=== PATIENT | female | born 1975 | race Caucasian/White ===

== ENCOUNTER 2016-12-08 21:16 | Emergency (ER) | payer OTHER ==
[2016-12-08 21:44] VITALS: BMI 29.0
[2016-12-08] MEDS ORDERED: SODIUM CHLORIDE 0.9% 500 ML INFUS.BAG IV ONE (22:45)
--- NOTE | 2016-12-08 23:00 | PDOC ---
History of Present Illness - General History Source: Patient Exam Limitations: No Limitations - History of Present Illness Initial Comments: 12/09/16 00:14 The patient is a 41 year old female, 8 weeks , with past medical history of diabetes and hypertension who presents to the ED with complaints of elevated blood sugar levels that began today. She reports that she left her Janumet at work and did not take it today. She wont have access to it until Saturday. She complains of blurred vision, dizziness, urinary frequency, and increased thirst. She reports taking a finger stick at home which was in the 500 s. She denies any recent illness, fever, chills, nausea, vomiting, diarrhea, cough, shortness of breath, or chest pain. <Miesha Sanchez - Last Filed: 12/09/16 00:13> <Cuco Lezama - Last Filed: 12/09/16 01:34> - General Chief Complaint: Blood Sugar Problem Stated Complaint: HIGH BLOOD SUGAR Past History <Miesha Sanchez - Last Filed: 12/09/16 00:13> - Past Medical History Diabetes: Yes HTN: Yes - Psycho/Social/Smoking Cessation Hx Anxiety: No Suicidal Ideation: No Smoking History: Never smoked Hx Alcohol Use: No Drug/Substance Use Hx: No Substance Use Type: None <Cuco Lezama - Last Filed: 12/09/16 01:34> - Past Medical History Allergies/Adverse Reactions: Allergies Allergy/AdvReac Type Severity Reaction Status Date / Time No Known Allergies Allergy Verified 12/08/16 21:41 Home Medications: Ambulatory Orders Sitagliptin Phos/Metformin HCl [Janumet 50-500 mg Tablet] 500 mg PO DAILY #10 tab 12/09/16 Review of Systems - Review of Systems Able to Perform ROS?: Yes Comments:: 12/09/16 00:14 GENERAL/CONSTITUTIONAL: No fever or chills. No weakness. HEAD, EYES, EARS, NOSE AND THROAT: No change in vision. No ear pain or discharge. No sore throat. CARDIOVASCULAR: No chest pain or shortness of breath. RESPIRATORY: No cough, wheezing, or hemoptysis. GASTROINTESTINAL: No nausea, vomiting, diarrhea or constipation. GENITOURINARY: Present: frequency No dysuria or change in urination. MUSCULOSKELETAL: No joint or muscle swelling or pain. No neck or back pain. SKIN: No rash NEUROLOGIC: Present: dizziness, blurred vision No headache,loss of consciousness, or change in strength/sensation. ENDOCRINE: Present: increased thirst No abnormal weight change. HEMATOLOGIC/LYMPHATIC: No anemia, easy bleeding, or history of blood clots. ALLERGIC/IMMUNOLOGIC: No hives or skin allergy. All Other Systems: Reviewed and Negative <Miesha Sanchez - Last Filed: 12/09/16 00:13> *Physical Exam - Vital Signs Last Vital Signs Temp Pulse Resp BP Pulse Ox 98.5 F 89 18 141/94 99 12/08/16 21:37 12/08/16 21:37 12/08/16 21:37 12/08/16 21:37 12/08/16 21:37 - Physical Exam Comments: 12/09/16 00:16 GENERAL: Awake, alert, and fully oriented, in no acute distress HEAD: No signs of trauma EYES: PERRLA, EOMI, sclera anicteric, conjunctiva clear ENT:Dry mucous membranes. Auricles normal inspection, hearing grossly normal, nares patent, oropharynx clear without exudates. NECK: Normal ROM, supple, no lymphadenopathy, JVD, or masses LUNGS: Breath sounds equal, clear to auscultation bilaterally. No wheezes, and no crackles HEART: Regular rate and rhythm, normal S1 and S2, no murmurs, rubs or gallops ABDOMEN: Soft, nontender, normoactive bowel sounds. No guarding, no rebound. No masses EXTREMITIES: Normal range of motion, no edema. No clubbing or cyanosis. No cords , erythema, or tenderness NEUROLOGICAL: Cranial nerves II through XII grossly intact. Normal speech, normal gait SKIN: Warm, Dry, normal turgor, no rashes or lesions noted. <Miesha Sanchez - Last Filed: 12/09/16 00:13> - Vital Signs Last Vital Signs Temp Pulse Resp BP Pulse Ox 98.5 F 89 18 141/94 99 12/08/16 21:37 12/08/16 21:37 12/08/16 21:37 12/08/16 21:37 12/08/16 21:37 <Cuco Lezama - Last Filed: 12/09/16 01:34> ED Treatment Course - LABORATORY CBC & Chemistry Diagram: 12/08/16 23:15 12/08/16 23:15 - ADDITIONAL ORDERS Additional order review: Laboratory Results 12/08/16 12/08/16 12/08/16 23:20 23:15 23:15 INR Sodium Potassium Chloride Carbon Dioxide Anion Gap BUN Creatinine Creat Clearance w eGFR Random Glucose Lactic Acid 1.011 Calcium Phosphorus Magnesium Total Bilirubin AST ALT Alkaline Phosphatase Creatine Kinase Troponin I Total Protein Albumin Lipase Urine Color Straw Urine Appearance Clear Urine pH 5.0 Ur Specific [place] 1.042 H Urine Protein Negative Urine Glucose (UA) 3+ H Urine Ketones Trace H Urine Blood Negative Urine Nitrite Negative Urine Bilirubin Negative Urine Urobilinogen Negative Ur Leukocyte Esterase Negative Acetone, Qual Negative L 12/08/16 12/08/16 23:15 23:15 INR 1.02 Sodium 132 L Potassium 4.4 Chloride 94 L Carbon Dioxide 28 Anion Gap 10 BUN 12 D Creatinine 1.0 D Creat Clearance w eGFR > 60 Random Glucose 462 H* D Lactic Acid Calcium 8.8 Phosphorus 3.4 Magnesium 1.9 Total Bilirubin 0.4 D AST 14 L ALT 24 Alkaline Phosphatase 115 Creatine Kinase 145 Troponin I < 0.02 Total Protein 8.1 Albumin 3.8 Lipase 164 Urine Color Urine Appearance Urine pH Ur Specific [place] Urine Protein Urine Glucose (UA) Urine Ketones Urine Blood Urine Nitrite Urine Bilirubin Urine Urobilinogen Ur Leukocyte Esterase Acetone, Qual 12/08/16 23:15 RBC 5.05 MCV 78.2 L MCHC 32.6 RDW 13.6 MPV 9.1 Neutrophils % 51.8 Lymphocytes % 39.5 Monocytes % 6.8 Eosinophils % 1.3 Basophils % 0.6 - Medications Given in the ED: ED Medications Discontinued Medications Generic Name Dose Route Start Last Admin Trade Name Guillermina PRN Reason Stop Dose Admin Sodium Chloride 1,000 ml 12/08/16 22:45 12/08/16 23:21 Normal Saline - IV 12/08/16 22:46 1,000 ml ONCE ONE Administration <Miesha Sanchez - Last Filed: 12/09/16 00:13> - LABORATORY CBC & Chemistry Diagram: 12/08/16 23:15 12/08/16 23:15 <Cuco Lezama - Last Filed: 12/09/16 01:34> Medical Decision Making - Medical Decision Making 12/09/16 01:29 12/09/16 01:30 This is a 41yo f with hyperglycemia and medication noncompliance. She is given a Rx for her daily antihyperglycemic agent so she has ability to take it until she is able to knot picker cloth her bottle which she left at work; she has no complaints at this time and is given fluids; no DKA and no significant hypokalemia. She is encouraged to follow up with the PMD within the next 24 hours. <Cuco Lezama - Last Filed: 12/09/16 01:34> *DC/Admit/Observation/Transfer - Attestations Scribe Attestion: 12/09/16 00:16 Documentation prepared by Miesha Sanchez, acting as auditor medical claims for Cuco Lezama MD. <Miesha Sanchez - Last Filed: 12/09/16 00:13> - Discharge Dispostion Admit: No Decision to Admit order Date/Time: 12/09/16 01:26 I, Dr. Cuco Lezama MD, attest that this document has been prepared under my direction and personally reviewed by me in its entirety. I further attest, that it accurately reflects all work, treatment, procedures and medical decision -making performed by me. - Attestations Physician Attestion: 12/09/16 01:30 I, Dr. Cuco Lezama MD, attest that this document has been prepared under my direction and personally reviewed by me in its entirety. I further attest, that it accurately reflects all work, treatment, procedures and medical decision -making performed by me. <Cuco Lezama - Last Filed: 12/09/16 01:34> Diagnosis at time of Disposition: Noncompliance with medication regimen, Hyperglycemia - Discharge Dispostion Disposition: HOME Condition at time of disposition: Good - Prescriptions Prescriptions: Sitagliptin Phos/Metformin HCl [Janumet 50-500 mg Tablet] 500 mg PO DAILY #10 tab - Referrals Referrals: Whitney Lao [Primary Care Provider] - - Patient Instructions Additional Instructions: Please follow up with your PMD within the next 24 hours and if there is any change in your symptoms otherwise, please return immediately to the ED. If you do not take your medication, you will likely continue to have elevated blood sugar.
[2016-12-08 23:25] LABS: BASOPHIL 0.6 % (0-2.0); EOSINOPHIL 1.3 % (0-4.5); MCH 25.5 pg (25.7-33.7); MCHC 32.6 g/dl (32.0-36.0); MEAN CELL VOLUME 78.2 fl (80-96); MEAN PLT VOLUME 9.1 fl (7.5-11.1); NEUTROPHILS 51.8 % (42.8-82.8); PLATELET COUNT 299 K/MM3 (134-434); RDW 13.6 % (11.6-15.6)
[2016-12-08 23:35] LABS: INR 1.02 (0.82-1.09); PROTHROMBIN TIME (PATIENT) 11.2 SEC (9.98-11.88)
[2016-12-08 23:45] LABS: URINE APPEARANCE CLEAR; URINE BILIRUBIN NEGATIVE (NEGATIVE); URINE BLOOD NEGATIVE (NEGATIVE); URINE COLOR STRAW; URINE GLUCOSE (UA) 3+ (NEGATIVE); URINE KETONE TRACE (NEGATIVE); URINE LEUK ESTERASE NEGATIVE (NEGATIVE); URINE NITRITE NEGATIVE (NEGATIVE); URINE PROTEIN NEGATIVE (NEGATIVE); URINE UROBILINOGEN NEGATIVE E.U./dl (0.2-1.0)
[2016-12-08 23:51] LABS: ALBUMIN 3.8 g/dl (3.4-5.0); ANION GAP 10 (8-16); BILIRUBIN,TOTAL 0.4 mg/dL (0.2-1.0); CALCIUM 8.8 mg/dL (8.5-10.1); CO2 28 mmol/L (21-32); MAGNESIUM 1.9 mg/dL (1.8-2.4); PHOSPHOROUS 3.4 mg/dL (2.5-4.9); SGOT/AST 14 U/L (15-37); SGPT/ALT 24 U/L (12-78)
[2016-12-08 23:55] LABS: GLUCOSE,RANDOM 462 mg/dL (74-106)
[2016-12-08 23:57] LABS: ALK PHOS 115 U/L (45-117); TOT PROT 8.1 g/dl (6.4-8.2); TROPONIN I < 0.02 ng/ml (0.00-0.05)
[2016-12-09] MEDS ORDERED: SODIUM CHLORIDE 0.9% 500 ML INFUS.BAG IV ONE (01:03)
[2016-12-09] MEDS ORDERED: metFORMIN HCL 500 MG TABLET (FP) PO ONE (02:02)
[2016-12-09] MEDS ORDERED: metFORMIN HCL 500 MG TABLET (FP) ONE ×2 (02:13→02:15)
[2016-12-09 02:38] VITALS: BP 130/85; PULSE 84; TEMP 98.2
--- NOTE | 2016-12-09 22:28 | EKG ---
Test Reason : Blood Pressure : / mmHG Vent. Rate : 077 BPM Atrial Rate : 077 BPM P-R Int : 184 ms QRS Dur : 090 ms QT Int : 388 ms P-R-T Axes : 034 013 019 degrees QTc Int : 439 ms NORMAL SINUS RHYTHM NORMAL ECG NO PREVIOUS ECGS AVAILABLE Confirmed by MAGDA SOLIS MD ([id number]) on 12/09/2016 10:28:26 PM Referred By: Confirmed By:MAGDA SOLIS MD
== END 2016-12-09 02:38 | disposition home or self-care (01) ==
LOC: JER 21:16
DX: E11.65 Type 2 diabetes mellitus with hyperglycemia (principal); I10 Essential (primary) hypertension; Z79.84 Long term (current) use of oral hypoglycemic drugs; Z91.14 Patient's other noncompliance with medication regimen
CPT/HCPCS: 36415; 71010-TC; 80053; 81003; 82009; 82550; 83605; 83690; 83735; 84100; 84484; 85025; 85610; 87086; 93005; 93010; 99283-25

== ENCOUNTER 2017-09-07 16:42 | Emergency (ER) | payer OTHER ==
[2017-09-07 16:54] VITALS: BP 125/81; PULSE 90; TEMP 98; BMI 26.6
--- NOTE | 2017-09-07 17:34 | PDOC ---
History of Present Illness - General Chief Complaint: Blood Sugar Problem Stated Complaint: FATIGUE,BLOOD SUGAR PROBLEM Time Seen by Provider: 09/07/17 17:18 - History of Present Illness Initial Comments: 09/07/17 17:59 The patient is a 42 year old female with a history of HTN, DM who presents for evaluation of weakness and fatigue and dizziness. The patient reports a 2 month history of weakness and fatigue. She notes that her insulin regimen was increased 1 week ago by her primary care provider due to uncontrolled blood sugars. She notes that today, she was walking with her son and felt extremely fatigued and weak and dizzy prompting her to present to the ED due to concerns for her blood sugars. She denies fevers, chills, SOB, chest pain, abdominal pain, nausea, vomiting, or changes with urination or bowel movements. She does note that she has some mild lower back pain that responses to ibuprofen. Past History - Past Medical History Allergies/Adverse Reactions: Allergies Allergy/AdvReac Type Severity Reaction Status Date / Time No Known Allergies Allergy Verified 09/07/17 18:20 Home Medications: Ambulatory Orders Sitagliptin Phos/Metformin HCl [Janumet 50-500 mg Tablet] 500 mg PO DAILY #10 tab 12/09/16 Insulin Lispro Protamin/Lispro [Humalog Mix 75-25 Kwikpen] 20 unit SQ BID COPD: No Diabetes: Yes HTN: Yes - Suicide/Smoking/Psychosocial Hx Smoking History: Never smoked Information on smoking cessation initiated: No Hx Alcohol Use: No Drug/Substance Use Hx: No Substance Use Type: None Review of Systems - Review of Systems Comments:: 09/07/17 18:03 Constitutional: Fatigue. No fevers, chills, malaise HEENT: No Rhinorrhea, nasal congestion, visual changes Cardiovascular: Lightheadedness. No chest pain, syncope, palpitations, Respiratory: No Cough, SOB, Hemoptysis, Gastrointestinal: No Abdominal pain, Nausea, Vomiting, Constipation, Diarrhea, Melena Genitourinary: No Dysuria, Frequency, Urgency, Hesitancy, Hematuria, Flank pain Musculoskeletal: No Myalgia, arthralgia Skin: No rashes, itching, bruising, pallor Neurologic: No Headache, Dizziness, Numbness, or Tingling Psychiatric: No Hallucinations. No SI or HI *Physical Exam - Vital Signs Last Vital Signs Temp Pulse Resp BP Pulse Ox 98 F 90 18 125/81 99 09/07/17 16:52 09/07/17 16:52 09/07/17 16:52 09/07/17 16:52 09/07/17 16:52 - Physical Exam Comments: 09/07/17 18:03 General Appearance: Nourished. No Apparent Distress HEENT: EOMI, KENNEDY. No Pharyngeal Erythema, Tonsillar Exudate, Tonsillar Erythema Neck: No Cervical Lymphadenopathy Respiratory/Chest: Lungs Clear, Normal Breath Sounds. No Crackles, Rales, Rhonchi, Wheezing Cardiovascular: Regular Rhythm, Regular Rate. No Murmur, Gallops, Rubs Gastrointestinal/Abdominal: Normal Bowel Sounds, Soft. No Guarding, Rebound, Tenderness Musculoskeletal: No CVA Tenderness Extremity: Normal Capillary Refill Integumentary: Normal Color, Dry, Warm Neurologic: immunology specialist II-XII NML intact, Fully Oriented, Alert, Normal Mood/Affect, Normal Response, ED Treatment Course - LABORATORY CBC & Chemistry Diagram: 09/07/17 17:52 09/07/17 17:52 Medical Decision Making - Medical Decision Making 09/07/17 18:04 The patient is a 42 year old female with a history of HTN, DM who presents for evaluation of weakness and fatigue and dizziness. Differential includes but is not limited to: DKA, HHS, hyperglycemia, ACS, infectious, metabolic derangement. Finger stick demonstrates a glucose of 248. Given the patient's uncontrolled DM, it is likely her hyperglycemia is contributing to her symptoms , although clinically it does not appear she is in DKA. However, we will obtain a cbc, cmp, acetone, UA, troponin, ekg to evaluate further. We will treat with iv fluids and continue to monitor and reassess. 09/07/17 19:13 cbc, cmp, troponin, UA, acetone are unremarkable. The patient's symptoms are likely due to her uncontrolled DM. We discussed with the patient the importance of following up with her primary care provider to discuss further management of her diabetes and she voiced understanding. We discussed the results and the plan with the patient who voiced understanding and is agreeable with the plan. *DC/Admit/Observation/Transfer Diagnosis at time of Disposition: Hyperglycemia - Discharge Dispostion Disposition: HOME Condition at time of disposition: Improved Admit: No - Referrals - Patient Instructions Printed Discharge Instructions: DI for Hyperglycemia -- Adult Additional Instructions: Please return to the ER if you experience concerning or worsening symptoms including worsening headache, difficulty breathing, or fevers. Your lab results were normal here in the ER. Your symptoms are likely due to your high blood sugar. It is extremely important that you call to schedule a follow up appointment with your primary care provider within 1 week to discuss further management of your diabetes. - Post Discharge Activity
[2017-09-07] MEDS ORDERED: SODIUM CHLORIDE 1,000 ML IV STA (17:36)
[2017-09-07 18:02] LABS: BASO % 0.6 % (0-2.0); EOS # 0.1 # (0-4.5); LYMPH # 2.7 (8-40); MCH 25.4 pg (25.7-33.7); MCHC 32.4 g/dl (32.0-36.0); MEAN CELL VOLUME 78.6 fl (80-96); MEAN PLT VOLUME 8.8 fl (7.5-11.1); MONO # 0.6 # (3.8-10.2); NEUT # 5.4 # (42.8-82.8); NEUT % 61.1 % (42.8-82.8); PLATELET COUNT 269 K/MM3 (134-434); RDW 13.1 % (11.6-15.6); WHITE BLOOD COUNT 8.9 K/mm3 (4.0-10.0)
--- NOTE | 2017-09-07 18:21 | PDOC ---
*Physical Exam - Vital Signs Last Vital Signs Temp Pulse Resp BP Pulse Ox 98 F 90 18 125/81 99 09/07/17 16:52 09/07/17 16:52 09/07/17 16:52 09/07/17 16:52 09/07/17 16:52 - Physical Exam Comments: 09/07/17 18:49 Vitals: Triage vital signs reviewed. General Appearance: No acute distress, well nourished, well developed. Head: Atraumatic, normocephalic. Eyes: Pupils equal round reactive, extraocular movements intact. Neck: Supple. No nuchal rigidity. Chest Wall: Nontender. Cardiac: Regular rate and rhythm. No murmurs, no rubs, no gallops. Lungs: Clear to auscultation bilaterally, good air movement bilaterally. Abdomen: Soft, nondistended, normal bowel sounds, nontender to palpation. Extremities: Full range of motion to all extremities. No cyanosis, clubbing, or edema. Skin: Warm and dry, no rashes or lesions, no petechiae. Neuro: AOX3; Cranial Nerves 2-12 grossly intact. Strength intact to all extremities. Sensation intact to all extremities. Psych: Normal mood, normal affect. <Rosalie Duran - Last Filed: 09/07/17 18:53> - Vital Signs Last Vital Signs Temp Pulse Resp BP Pulse Ox 98 F 90 18 125/81 99 09/07/17 16:52 09/07/17 16:52 09/07/17 16:52 09/07/17 16:52 09/07/17 16:52 <Bill Vance - Last Filed: 09/07/17 19:25> Heart Score/ECG Review #1 ECG reviewed & interpreted by me at: 18:15 (EKG performed at 18:15 demonstrates rate of 89 bpm, normal sinus rhythm, normal axis. No T wave inversions, no ST elevations. ) <Rosalie Duran - Last Filed: 09/07/17 18:53> ED Treatment Course - LABORATORY CBC & Chemistry Diagram: 09/07/17 17:52 09/07/17 17:52 - ADDITIONAL ORDERS Additional order review: Laboratory Results 09/07/17 09/07/17 09/07/17 18:07 17:52 17:27 POC Glucometer [id number] Urine Color Ltyellow Urine Appearance Slcloudy Urine pH 6.0 Ur Specific [place] 1.029 Urine Protein Negative Urine Glucose (UA) 3+ H Urine Ketones Trace H Urine Blood Negative Urine Nitrite Negative Urine Bilirubin Negative Urine Urobilinogen Negative Acetone, Qual Negative L 09/07/17 09/07/17 17:52 17:27 RBC 4.88 MCV 78.6 L MCHC 32.4 RDW 13.1 MPV 8.8 Neutrophils % 61.1 Lymphocytes % 30.9 D Monocytes % 6.4 Eosinophils % 1.0 Basophils % 0.6 POC Glucometer [id number] <Rosalie Duran - Last Filed: 09/07/17 18:53> - LABORATORY CBC & Chemistry Diagram: 09/07/17 17:52 09/07/17 17:52 - ADDITIONAL ORDERS Additional order review: Laboratory Results 09/07/17 17:27 POC Glucometer [id number] 09/07/17 12 17:52 17:27 RBC 4.88 MCV 78.6 L MCHC 32.4 RDW 13.1 MPV 8.8 Neutrophils % 61.1 Lymphocytes % 30.9 D Monocytes % 6.4 Eosinophils % 1.0 Basophils % 0.6 POC Glucometer [id number] <Bill Vance - Last Filed: 09/07/17 19:25> Progress Note - Progress Note Progress Note: The patient is a 42 year old female, with a significant past medical history of hypertension and diabetes, who presents to the emergency department feeling fatigued over the past week. The patient reports that her sugars have been difficult to control over the past 2 months so her insulin was increased one week ago. The patient does report intermittent blurry vision. The patient reports that she was out walking today with her son when she began to feel particularly weak and fatigued so she decided to come to the ED for evaluation. The patient denies fevers, chills, nausea, vomiting, diarrhea, polydipsia, polyuria, shortness of breath or chest pain. Allergies: None reported. Past Surgical History: C section. Social History: Non-smoker. Denies alcohol or drug use. <Rosalie Duran - Last Filed: 09/07/17 18:53> Medical Decision Making - Medical Decision Making 09/07/17 19:25 42 years old past medical history significant for poorly controlled diabetes presents to the ED with several day history of generalized weakness fatigue blurry vision. No double vision no headache no chest pain or shortness of breath plan labs EKG hydrated and reassess Reevaluation patient feels better after IV fluids normal neurologic examination. EKG nonischemic laboratory analysis within normal limits patient advised to follow-up with her doctor for tighter glucose control. She will return to the ED for any severe worsening symptoms or for any concerns. <Bill Vance - Last Filed: 09/07/17 19:25> *DC/Admit/Observation/Transfer - Attestations Scribe Attestion: 09/07/17 18:36 Documentation prepared by Rosalie Duran, acting as medical instrument cable fabricator for Bill Vance MD. <Rosalie Duran - Last Filed: 09/07/17 18:53> <Bill Vance - Last Filed: 09/07/17 19:25> Diagnosis at time of Disposition: Hyperglycemia - Discharge Dispostion Disposition: HOME Condition at time of disposition: Improved - Patient Instructions Printed Discharge Instructions: DI for Hyperglycemia -- Adult Additional Instructions: Please return to the ER if you experience concerning or worsening symptoms including worsening headache, difficulty breathing, or fevers. Your lab results were normal here in the ER. Your symptoms are likely due to your high blood sugar. It is extremely important that you call to schedule a follow up appointment with your primary care provider within 1 week to discuss further management of your diabetes.
[2017-09-07 18:23] LABS: URINE APPEARANCE SLCLOUDY; URINE BILIRUBIN NEGATIVE (NEGATIVE); URINE BLOOD NEGATIVE (NEGATIVE); URINE COLOR LTYELLOW; URINE GLUCOSE (UA) 3+ (NEGATIVE); URINE KETONE TRACE (NEGATIVE); URINE LEUK ESTERASE NEGATIVE (NEGATIVE); URINE NITRITE NEGATIVE (NEGATIVE); URINE PROTEIN NEGATIVE (NEGATIVE); URINE UROBILINOGEN NEGATIVE mg/dL (0.2-1.0)
[2017-09-07 18:28] LABS: ALBUMIN 3.4 g/dl (3.4-5.0); ANION GAP 8 (8-16); BILIRUBIN,TOTAL 0.3 mg/dL (0.2-1.0); CALCIUM 8.8 mg/dL (8.5-10.1); CO2 27 mmol/L (21-32); CREATININE 1.2 mg/dL (0.55-1.02); GLUCOSE,RANDOM 179 mg/dL (74-106); SGOT/AST 10 U/L (15-37); SGPT/ALT 22 U/L (12-78); TOT PROT 7.6 g/dl (6.4-8.2)
[2017-09-07 18:29] LABS: ALK PHOS 90 U/L (45-117)
[2017-09-07 18:30] LABS: CPK 86 IU/L (26-192); TROPONIN I < 0.02 ng/ml (0.00-0.05)
[2017-09-07] MEDS ORDERED: IBUPROFEN 600 MG TABLET (FP) PO ONE ×2 (19:27→19:30)
[2017-09-07 20:37] LABS: URINE LEUK ESTERASE Negative (NEGATIVE)
--- NOTE | 2017-09-08 17:09 | EKG ---
Test Reason : Blood Pressure : / mmHG Vent. Rate : 089 BPM Atrial Rate : 089 BPM P-R Int : 180 ms QRS Dur : 088 ms QT Int : 380 ms P-R-T Axes : 038 036 036 degrees QTc Int : 462 ms NORMAL SINUS RHYTHM SEPTAL INFARCT , AGE UNDETERMINED ABNORMAL ECG WHEN COMPARED WITH ECG OF 08-DEC-2016 23:29, SEPTAL INFARCT IS NOW PRESENT NONSPECIFIC T WAVE ABNORMALITY NOW EVIDENT IN ANTERIOR LEADS Confirmed by WILL ARIAS, MAGDA ([id number]) on 09/08/2017 5:09:22 PM Referred By: Confirmed By:MAGDA SOLIS MD
== END 2017-09-07 19:33 | disposition home or self-care (01) ==
LOC: JER 16:42
PROC: 3E0337Z Introduction of Electrolytic and Water Balance Substance into Peripheral Vein, Percutaneous Approach (ICD-10-PCS; principal; 2017-09-07)
DX: E10.65 Type 1 diabetes mellitus with hyperglycemia (principal); Z79.4 Long term (current) use of insulin; I10 Essential (primary) hypertension
CPT/HCPCS: 36415; 80053; 81003; 82009; 82550; 84484; 84703; 85025; 93005; 93010; 99283-25

== ENCOUNTER 2019-10-10 17:28 | Emergency (ER) | payer OTHER ==
[2019-10-10 17:42] VITALS: TEMP 99.6; BMI 29.6
[2019-10-10] MEDS ORDERED: LACTATED RINGERS SOLUTION 1000 ML INFUS.BAG IV ONE ×2 (17:50→19:21)
--- NOTE | 2019-10-10 17:50 | PDOC ---
History of Present Illness - General Chief Complaint: Weakness Stated Complaint: WEAKNESS Time Seen by Provider: 10/10/19 17:45 History Source: Patient Exam Limitations: No Limitations - History of Present Illness Initial Comments: HPI: 44 y/o female presenting to [facility] ER complaining of generalized weakness and nausea without vomiting since Saturday. Endorses sour taste in mouth that is worse after eating, as well as SOB when laying flat. Denies fevers, chills, coughing, sneezing, chest pain, abdominal pain, or lower extremity swelling. Called and discussed symptoms with PCP who called in an unknown antibiotic. She took the medication for a few days but it made her feel worse so she stopped. 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 Has never undergoing EGD or colonoscopy. Family Hx: - Mother had stomach CA Medical Hx: - Diabetes on Metformin and Insulin - HTN Review of Systems: In addition to that documented in the HPI above, the additional ROS was obtained : Constitutional- Denies fevers or chills Head- Denies vision changes ENMT- Denies sore throat CV- Denies chest pain Resp- Denies coughing GI- Denies vomiting or diarrhea - Denies painful urination, hematuria MSK- Denies recent trauma Skin- Denies new rashes Neuro- Denies new numbness or tingling Endocrine- Denies polyuria Heme- Denies bleeding or bruising Physical Examination: Vital signs and nursing notes reviewed. Constitutional- Well-developed, well-nourished adult female in no acute distress or obvious discomfort. Obese body habitus. Found semi-fowlers on hospital bed. Answered all questions appropriately and completely. Head- Normocephalic. No obvious external signs of trauma. Eyes- Sclerae white. Ears- External auditory canals and tympanic membranes pearly zuñiga. Hearing grossly intact. Nose- No nasal discharge. Neck- Supple, trachea is midline. Cardiovascular / Chest- Borderline tachycardic rate with regular rhythm. No murmur, rubs, clicks, or gallops. Peripheral pulses- radial pulses full. No pretibial edema. Respiratory- Breathing unlabored. Equal chest rise and fall. Clear to auscultation bilaterally. No stridor, no wheezing, no rhonchi. Gastrointestinal- abdomen is soft, non-tender, non-distended. No hepatosplenomegaly. No pulsatile masses. Neuro- Alert and oriented x4. Moving all four extremities spontaneously. No facial asymmetry. No slurred speech. No nuchal rigidity. Skin- Warm, dry, and intact. Psych- Affect- appropriate. Mood- normal. Speech was non-labored, non- pressured. MDM: 44 y/o female presenting with generalized weakness, nausea, metallic taste in mouth. Afebrile. Vitals unremarkable for hypotension or tachycardia. Physical exam as described above. Suspect likely dehydration from hyperglycemia vs reflux sympoms. Low suspicion for ACS, PNA, CHF, DKA, HSS. Reviewed labs. Noted 3+ glucose in urine. Will rehydrate further with second LF IVFB. 10 Oct 2019 19:49 PM Pt signed out to resident Dr. Bartlett after he was verbally appraised of the pts HPI, current ED course, and plan of management. Will f/u on symptom improvement. Dispo pending. Bean Frausto M.D., PGY2 Emergency Medicine Resident Past History - Past Medical History Allergies/Adverse Reactions: Allergies Allergy/AdvReac Type Severity Reaction Status Date / Time No Known Allergies Allergy Verified 10/10/19 18:40 Home Medications: Ambulatory Orders Insulin Lispro Protamin/Lispro [Humalog Mix 75-25 Kwikpen] 30 unit SQ BID Lisinopril 20 mg PO DAILY 10/10/19 Metformin HCl [Glucophage] 500 mg PO BID 10/10/19 COPD: No Diabetes: Yes HTN: Yes - Immunization History Immunization Up to Date: No - Psycho Social/Smoking Cessation Hx Smoking History: Never smoked Have you smoked in the past 12 months: No Information on smoking cessation initiated: No Hx Alcohol Use: No Drug/Substance Use Hx: No Substance Use Type: None *Physical Exam - Vital Signs Last Vital Signs Temp Pulse Resp BP Pulse Ox 99.6 F 107 H 18 94/63 99 10/10/19 17:40 10/10/19 17:40 10/10/19 17:40 10/10/19 17:40 10/10/19 17:40 Vital Signs - Vital Signs #1 Time: 18:49 Blood Pressure: 111/66 BP Location: Left Arm Blood Pressure Position: Sitting Pulse Rate: 97 Respiratory Rate: 16 O2 Sat by Pulse Oximetry (%): 100 Oxygen Delivery Method: Room Air ED Treatment Course - LABORATORY CBC & Chemistry Diagram: 10/10/19 18:00 10/10/19 18:00 Discharge - Discharge Information Problems reviewed: Yes Clinical Impression/Diagnosis: Nausea Condition: Stable - Follow up/Referral Referrals: Whitney Lao [Primary Care Provider] - - Patient Discharge Instructions - Post Discharge Activity
[2019-10-10 18:17] LABS: VENOUS PC02 44.2 mmHg (38-52); VENOUS PH 7.42 (7.31-7.41)
[2019-10-10] MEDS ORDERED: MAG HYDROX/AL HYDROX/SIMETH 30 ML UNIT-DOSE CUP PO ONE (18:18)
[2019-10-10] MEDS ORDERED: FAMOTIDINE 20 MG/50 ML IVPB 20 MG/50 ML MG IVPB ONE ×2 (18:18→18:21)
--- NOTE | 2019-10-10 18:19 | PDOC ---
Attending Attestation - Resident Resident Name: Bean Frausto - ED Attending Attestation I have performed the following: I have examined & evaluated the patient, The case was reviewed & discussed with the resident, I agree w/resident's findings & plan, Exceptions are as noted - HPI HPI: 44 yo F history CM presents with generalized weakness, nausea, and poor appetite for past week. Denies cp, SOB, abd pain, diarrhea, vomiting. No recent fevers, illness. - Physicial Exam PE: GENERAL: Awake, alert, and fully oriented, in no acute distress HEAD: No signs of trauma EYES: PERRLA, EOMI, sclera anicteric, conjunctiva clear ENT: Auricles normal inspection, hearing grossly normal, nares patent, oropharynx clear without exudates. Moist mucosa NECK: Normal ROM, supple, no lymphadenopathy, JVD, or masses LUNGS: Breath sounds equal, clear to auscultation bilaterally. No wheezes, and no crackles HEART: Regular rate and rhythm, normal S1 and S2, no murmurs, rubs or gallops ABDOMEN: Soft, nontender, normoactive bowel sounds. No guarding, no rebound. No masses EXTREMITIES: Normal range of motion, no edema. No clubbing or cyanosis. No cords, erythema, or tenderness NEUROLOGICAL: Cranial nerves II through XII grossly intact. Normal speech, normal gait. Motor and sensation intact SKIN: Warm, dry, normal turgor, no rashes or lesions noted. - Medical Decision Making Pt with history of DM and recent elevated blood glucose, now with nausea and poor appetite. Will check basic labs, r/o DKA. No signs of acute abdomen at present.
[2019-10-10 18:20] LABS: VENOUS PO2 < 49 mmHg (28-48)
[2019-10-10] MEDS ORDERED: MAG HYDROX/AL HYDROX/SIMETH 30 ML UNIT-DOSE CUP ONE (18:20)
[2019-10-10 18:25] LABS: BASO % 0.7 % (0-2.0); EOS % 0.4 % (0-4.5); HEMATOCRIT 43.2 % (32.4-45.2); HEMOGLOBIN 13.9 GM/dL (10.7-15.3); LYMPH % 25.5 % (8-40); MCHC 32.3 g/dl (32.0-36.0); MEAN CELL VOLUME 77.4 fl (80-96); MEAN PLT VOLUME 8.7 fl (7.5-11.1); MONO % 14.1 % (3.8-10.2); NEUT % 59.3 % (42.8-82.8); PLATELET COUNT 244 K/MM3 (134-434); RBC 5.57 M/mm3 (3.60-5.2); RDW 13.8 % (11.6-15.6); WHITE BLOOD COUNT 2.7 K/mm3 (4.0-10.0)
[2019-10-10 18:50] VITALS: BP 111/66; PULSE 97
[2019-10-10 18:58] LABS: PH,URINE 7.5 (5.0-8.0); URINE APPEARANCE Clear; URINE BILIRUBIN Negative (NEGATIVE); URINE COLOR Yellow; URINE GLUCOSE (UA) 3+ (NEGATIVE); URINE KETONE 1+ (NEGATIVE); URINE LEUK ESTERASE Negative (NEGATIVE); URINE NITRITE Negative (NEGATIVE); URINE PROTEIN 1+ (NEGATIVE)
[2019-10-10 19:02] LABS: ALBUMIN 3.6 g/dl (3.4-5.0); BILIRUBIN,TOTAL 0.2 mg/dL (0.2-1); BLOOD UREA NITROGEN 7.2 mg/dL (7-18); CALCIUM 8.7 mg/dL (8.5-10.1); CREATININE 0.8 mg/dL (0.55-1.3); POTASSIUM 3.9 mmol/L (3.5-5.1); TOT PROT 7.8 g/dl (6.4-8.2)
[2019-10-10 19:07] LABS: PHOSPHOROUS 2.2 mg/dL (2.5-4.9)
[2019-10-10 19:18] LABS: EPI CELLS 17.9 /HPF (0-5/HPF); HYALINE CASTS 7.08 /lpf (0-8); URINE RBC 0.5 /hpf (0-4); URINE WBC 1.2 /hpf (0-5)
--- NOTE | 2019-10-10 19:32 | PDOC ---
History of Present Illness - General Chief Complaint: Weakness Stated Complaint: WEAKNESS Time Seen by Provider: 10/10/19 17:45 History Source: Patient Exam Limitations: No Limitations - History of Present Illness Initial Comments: Received sign out from Dr. Frausto 44 yo F presenting with generalized weakness and nausea without vomiting since Saturday At the time of sign out, the patient had pending laboratory work and requiring a reassessment after fluid bolus administration. On ROS: Denies fever, chills, chest pain, coughing, dysuria, hematuria, trauma, and diarrhea. No visual changes Past History - Past Medical History Allergies/Adverse Reactions: Allergies Allergy/AdvReac Type Severity Reaction Status Date / Time No Known Allergies Allergy Verified 10/10/19 18:40 Home Medications: Ambulatory Orders Insulin Lispro Protamin/Lispro [Humalog Mix 75-25 Kwikpen] 30 unit SQ BID Lisinopril 20 mg PO DAILY 10/10/19 Metformin HCl [Glucophage] 500 mg PO BID 10/10/19 COPD: No Diabetes: Yes HTN: Yes - Immunization History Immunization Up to Date: No - Psycho Social/Smoking Cessation Hx Smoking History: Never smoked Have you smoked in the past 12 months: No Information on smoking cessation initiated: No Hx Alcohol Use: No Drug/Substance Use Hx: No Substance Use Type: None Review of Systems - Review of Systems Able to Perform ROS?: Yes (Note HPI) Is the patient limited Romanian proficient: No *Physical Exam - Vital Signs Last Vital Signs Temp Pulse Resp BP Pulse Ox 99.6 F 97 H 16 111/66 100 10/10/19 17:40 10/10/19 18:50 10/10/19 18:50 10/10/19 18:50 10/10/19 18:50 - Physical Exam On reassessment, patient's physical exam was noted as follows: NAD, CTA bilaterally without wheezing, rhonchi, or stridor, RRR without murmurs or gallops, abdomen is soft and non tender. CN2-12 grossly intact Warm and dry skin with moist mucous membranes. No nasal discharge noted. ED Treatment Course - LABORATORY CBC & Chemistry Diagram: 10/10/19 18:00 10/10/19 18:00 - ADDITIONAL ORDERS Additional order review: Laboratory Results 10/10/19 10/10/19 10/10/19 18:00 18:00 18:00 VBG pH 7.42 H POC VBG pCO2 44.2 POC VBG pO2 < 49 H VBG HCO3 28.2 VBG O2 Sat (Demetrius) 47.9 L VBG Base Excess 3.7 H Sodium Potassium Chloride Carbon Dioxide Anion Gap BUN Creatinine Est GFR (CKD-EPI)AfAm Est GFR (CKD-EPI)NonAf Random Glucose Calcium Phosphorus Magnesium Total Bilirubin AST ALT Alkaline Phosphatase Troponin I < 0.02 Total Protein Albumin Beta-Hydroxybutyrate TSH Thyroxine (T4) Urine Color Yellow Urine Appearance Clear Urine pH 7.5 D Ur Specific [place] 1.020 Urine Protein 1+ H Urine Glucose (UA) 3+ H Urine Ketones 1+ H Urine Blood Negative Urine Nitrite Negative Urine Bilirubin Negative Urine Urobilinogen 1.0 Ur Leukocyte Esterase Negative Urine WBC (Auto) 1.2 Urine RBC (Auto) 0.5 Urine Casts (Auto) 7.08 U Epithel Cells (Auto) 17.9 Urine Bacteria (Auto) 526.0 Urine HCG, Qual 10/10/19 10/10/19 10/10/19 18:00 18:00 18:00 VBG pH POC VBG pCO2 POC VBG pO2 VBG HCO3 VBG O2 Sat (Demetrius) VBG Base Excess Sodium Potassium Chloride Carbon Dioxide Anion Gap BUN Creatinine Est GFR (CKD-EPI)AfAm Est GFR (CKD-EPI)NonAf Random Glucose Calcium Phosphorus 2.2 L Magnesium Total Bilirubin AST ALT Alkaline Phosphatase Troponin I Total Protein Albumin Beta-Hydroxybutyrate TSH 0.59 Thyroxine (T4) 8.5 Urine Color Urine Appearance Urine pH Ur Specific [place] Urine Protein Urine Glucose (UA) Urine Ketones Urine Blood Urine Nitrite Urine Bilirubin Urine Urobilinogen Ur Leukocyte Esterase Urine WBC (Auto) Urine RBC (Auto) Urine Casts (Auto) U Epithel Cells (Auto) Urine Bacteria (Auto) Urine HCG, Qual Negative 10/10/19 10/10/19 18:00 18:00 VBG pH POC VBG pCO2 POC VBG pO2 VBG HCO3 VBG O2 Sat (Demetrius) VBG Base Excess Sodium 133 L Potassium 3.9 Chloride 99 Carbon Dioxide 28 Anion Gap 6 L BUN 7.2 Creatinine 0.8 Est GFR (CKD-EPI)AfAm 102.47 Est GFR (CKD-EPI)NonAf 88.41 Random Glucose 241 H Calcium 8.7 Phosphorus Magnesium 2.0 Total Bilirubin 0.2 AST 18 ALT 28 Alkaline Phosphatase 94 Troponin I Total Protein 7.8 Albumin 3.6 Beta-Hydroxybutyrate 1.3 TSH Thyroxine (T4) Urine Color Urine Appearance Urine pH Ur Specific [place] Urine Protein Urine Glucose (UA) Urine Ketones Urine Blood Urine Nitrite Urine Bilirubin Urine Urobilinogen Ur Leukocyte Esterase Urine WBC (Auto) Urine RBC (Auto) Urine Casts (Auto) U Epithel Cells (Auto) Urine Bacteria (Auto) Urine HCG, Qual 10/10/19 18:00 RBC 5.57 H MCV 77.4 L MCHC 32.3 RDW 13.8 MPV 8.7 Neutrophils % 59.3 Lymphocytes % 25.5 Monocytes % 14.1 H D Eosinophils % 0.4 Basophils % 0.7 - Medications Given in the ED: ED Medications Discontinued Medications Generic Name Dose Route Start Last Admin Trade Name Freq PRN Reason Stop Dose Admin Al Hydroxide/Mg Hydroxide 30 ml 10/10/19 18:18 10/10/19 18:27 Mylanta Oral Suspension - PO 10/10/19 18:19 30 ml ONCE ONE Administration Famotidine/Sodium Chloride 20 mg in 50 mls @ 100 mls/hr 10/10/19 18:18 18:27 Pepcid 20 Mg Premixed Ivpb - IVPB 10/10/19 18:47 100 mls/hr ONCE ONE Administration Lactated Ringer's 1,000 ml 10/10/19 17:50 10/10/19 18:19 Lactated Ringers Solution IV 10/10/19 17:51 1,000 ml ONCE ONE Administration Lactated Ringer's 1,000 ml 10/10/19 19:21 10/10/19 19:31 Lactated Ringers Solution IV 10/10/19 19:22 1,000 ml ONCE ONE Administration Medical Decision Making - Medical Decision Making Laboratory Tests 10/10/19 10/10/19 10/10/19 18:00 18:00 18:00 WBC 2.7 L RBC 5.57 H Hgb 13.9 Hct 43.2 MCV 77.4 L MCH 25.0 L MCHC 32.3 RDW 13.8 Plt Count 244 MPV 8.7 Absolute Neuts (auto) 1.6 Neutrophils % 59.3 Lymphocytes % 25.5 Monocytes % 14.1 H D Eosinophils % 0.4 Basophils % 0.7 Nucleated RBC % 0 VBG pH POC VBG pCO2 POC VBG pO2 VBG HCO3 VBG O2 Sat (Demetrius) VBG Base Excess Sodium 133 L Potassium 3.9 Chloride 99 Carbon Dioxide 28 Anion Gap 6 L BUN 7.2 Creatinine 0.8 Est GFR (CKD-EPI)AfAm 102.47 Est GFR (CKD-EPI)NonAf 88.41 Random Glucose 241 H Calcium 8.7 Phosphorus Magnesium 2.0 Total Bilirubin 0.2 AST 18 ALT 28 Alkaline Phosphatase 94 Troponin I Total Protein 7.8 Albumin 3.6 Beta-Hydroxybutyrate 1.3 TSH Thyroxine (T4) Urine Color Urine Appearance Urine pH Ur Specific [place] Urine Protein Urine Glucose (UA) Urine Ketones Urine Blood Urine Nitrite Urine Bilirubin Urine Urobilinogen Ur Leukocyte Esterase Urine WBC (Auto) Urine RBC (Auto) Urine Casts (Auto) U Epithel Cells (Auto) Urine Bacteria (Auto) Urine HCG, Qual 10/10/19 10/10/19 10/10/19 18:00 18:00 18:00 WBC RBC Hgb Hct MCV MCH MCHC RDW Plt Count MPV Absolute Neuts (auto) Neutrophils % Lymphocytes % Monocytes % Eosinophils % Basophils % Nucleated RBC % VBG pH POC VBG pCO2 POC VBG pO2 VBG HCO3 VBG O2 Sat (Demetrius) VBG Base Excess Sodium Potassium Chloride Carbon Dioxide Anion Gap BUN Creatinine Est GFR (CKD-EPI)AfAm Est GFR (CKD-EPI)NonAf Random Glucose Calcium Phosphorus 2.2 L Magnesium Total Bilirubin AST ALT Alkaline Phosphatase Troponin I Total Protein Albumin Beta-Hydroxybutyrate TSH 0.59 Thyroxine (T4) 8.5 Urine Color Urine Appearance Urine pH Ur Specific [place] Urine Protein Urine Glucose (UA) Urine Ketones Urine Blood Urine Nitrite Urine Bilirubin Urine Urobilinogen Ur Leukocyte Esterase Urine WBC (Auto) Urine RBC (Auto) Urine Casts (Auto) U Epithel Cells (Auto) Urine Bacteria (Auto) Urine HCG, Qual Negative 10/10/19 10/10/19 10/10/19 18:00 18:00 18:00 WBC RBC Hgb Hct MCV MCH MCHC RDW Plt Count MPV Absolute Neuts (auto) Neutrophils % Lymphocytes % Monocytes % Eosinophils % Basophils % Nucleated RBC % VBG pH 7.42 H POC VBG pCO2 44.2 POC VBG pO2 < 49 H VBG HCO3 28.2 VBG O2 Sat (Demetrius) 47.9 L VBG Base Excess 3.7 H Sodium Potassium Chloride Carbon Dioxide Anion Gap BUN Creatinine Est GFR (CKD-EPI)AfAm Est GFR (CKD-EPI)NonAf Random Glucose Calcium Phosphorus Magnesium Total Bilirubin AST ALT Alkaline Phosphatase Troponin I < 0.02 Total Protein Albumin Beta-Hydroxybutyrate TSH Thyroxine (T4) Urine Color Yellow Urine Appearance Clear Urine pH 7.5 D Ur Specific [place] 1.020 Urine Protein 1+ H Urine Glucose (UA) 3+ H Urine Ketones 1+ H Urine Blood Negative Urine Nitrite Negative Urine Bilirubin Negative Urine Urobilinogen 1.0 Ur Leukocyte Esterase Negative Urine WBC (Auto) 1.2 Urine RBC (Auto) 0.5 Urine Casts (Auto) 7.08 U Epithel Cells (Auto) 17.9 Urine Bacteria (Auto) 526.0 Urine HCG, Qual Patient was reassessed after 2 L fluid bolus Labs within normal limits save for low WBC count but not neutropenic without fever Patient to follow up with hematology for work up of leukopenia. HR after reassessment was 92; patient has borderline tachycardia at baseline per chart review Patient feels well at the time of discharge Discharge - Discharge Information Problems reviewed: Yes Clinical Impression/Diagnosis: Nausea Condition: Stable Disposition: HOME - Follow up/Referral Referrals: Whitney Lao [Primary Care Provider] - Jimmy Mora MD [Staff Physician] - - Patient Discharge Instructions Patient Printed Discharge Instructions: DI for Muscle Weakness Additional Instructions: You were seen in the emergency department for your weakness. Please follow up with your primary medical doctor within 1 week after discharge for follow up care and management. In addition, we are referring you to a hourly associate which is a blood doctor. Please see them within 1 week after discharge as well. Please return to the emergency department if you have worsening or new concerning symptoms. Thank you. - Post Discharge Activity
--- NOTE | 2019-10-11 12:32 | EKG ---
Test Reason : Blood Pressure : / mmHG Vent. Rate : 100 BPM Atrial Rate : 100 BPM P-R Int : 166 ms QRS Dur : 074 ms QT Int : 352 ms P-R-T Axes : 036 017 023 degrees QTc Int : 454 ms NORMAL SINUS RHYTHM POSSIBLE LEFT ATRIAL ENLARGEMENT SEPTAL INFARCT (CITED ON OR BEFORE 07-SEP-2017) ABNORMAL ECG WHEN COMPARED WITH ECG OF 07-SEP-2017 18:15, NO SIGNIFICANT CHANGE WAS FOUND Confirmed by TREVIN FIERRO MD ([id number]) on 10/11/2019 12:32:02 PM Referred By: Confirmed By:TREVIN FIERRO MD
== END 2019-10-10 21:05 | disposition home or self-care (01) ==
LOC: SUPCPDRO 17:28 → JER 17:28
PROC: 3E033GC Introduction of Other Therapeutic Substance into Peripheral Vein, Percutaneous Approach (ICD-10-PCS; principal; 2019-10-10)
DX: R11.0 Nausea (principal); E11.65 Type 2 diabetes mellitus with hyperglycemia; Z79.4 Long term (current) use of insulin; I10 Essential (primary) hypertension
CPT/HCPCS: 36415; 80053; 81003; 82010; 82803; 83735; 84100; 84436; 84443; 84484; 84703; 85025; 87086; 93005; 93010; 99283-25

== ENCOUNTER 2021-01-21 15:03 | Emergency (ER) | payer OTHER ==
[2021-01-21 15:27] VITALS: TEMP 98.4; BMI 28.1
[2021-01-21 17:30] LABS: BASO % 0.4 % (0-2.0); EOS % 1.1 % (0-4.5); HEMATOCRIT 37.3 % (32.4-45.2); HEMOGLOBIN 12.4 GM/dL (10.7-15.3); LYMPH % 40.7 % (8-40); MCHC 33.2 g/dl (32.0-36.0); MEAN CELL VOLUME 78.2 fl (80-96); MEAN PLT VOLUME 8.4 fl (7.5-11.1); MONO % 5.4 % (3.8-10.2); NEUT % 52.4 % (42.8-82.8); PLATELET COUNT 343 K/MM3 (134-434); RBC 4.77 M/mm3 (3.60-5.2); RDW 13.3 % (11.6-15.6); WHITE BLOOD COUNT 8.5 K/mm3 (4.0-10.0)
[2021-01-21 17:43] LABS: ALBUMIN 3.5 g/dl (3.4-5.0); CALCIUM 9.3 mg/dL (8.5-10.1)
[2021-01-21 17:44] LABS: BLOOD UREA NITROGEN 12.8 mg/dL (7-18)
[2021-01-21 17:47] LABS: CREATININE 0.7 mg/dL (0.55-1.3)
[2021-01-21 17:48] LABS: BILIRUBIN,TOTAL 0.2 mg/dL (0.2-1); TOT PROT 7.8 g/dl (6.4-8.2)
[2021-01-21 19:48] LABS: PH,URINE 5.5 (5.0-8.0); URINE APPEARANCE CLEAR; URINE BILIRUBIN NEGATIVE (NEGATIVE); URINE COLOR YELLOW; URINE GLUCOSE (UA) 3+ (NEGATIVE); URINE KETONE NEGATIVE (NEGATIVE); URINE LEUK ESTERASE NEGATIVE (NEGATIVE); URINE NITRITE NEGATIVE (NEGATIVE); URINE PROTEIN NEGATIVE (NEGATIVE); URINE UROBILINOGEN 0.2 mg/dL (0.2-1.0)
[2021-01-21] MEDS ORDERED: IBUPROFEN 600 MG TABLET (FP) PO ONE ×2 (21:40→21:42)
[2021-01-21 21:54] VITALS: BP 118/72; PULSE 78
== END 2021-01-21 21:54 | disposition home or self-care (01) ==
LOC: JER 15:03
DX: S39.012A Strain of muscle, fascia and tendon of lower back, initial encounter (principal)
CPT/HCPCS: 36415; 72131-TC; 80053; 81003; 84703; 85025; 87086; 99284-25

== ENCOUNTER → 2021-05-03 | Day surgery (SDC) | payer OTHER | END | disposition home or self-care (01) | LOC: JRADUS-SUR 08:11 | PROVIDERS: ATTEND Obstetrics & Gynecology | PROC: 0H9T3ZX Drainage of Right Breast, Percutaneous Approach, Diagnostic (ICD-10-PCS; principal; 2021-05-03) | DX: D24.1 Benign neoplasm of right breast (principal) | CPT/HCPCS: 19083; 77065-TC; 87899; A4648 ==

== ENCOUNTER 2021-06-04 16:35 | Emergency (ER) | payer OTHER ==
[2021-06-04 16:40] VITALS: BMI 28.1
[2021-06-04] MEDS ORDERED: LACTATED RINGERS SOLUTION 1000 ML INFUS.BAG IV ONE ×2 (17:19→18:19)
[2021-06-04 17:24] LABS: VENOUS BASE EXCESS -0.2 mmol/L (-2-2); VENOUS O2 SATURATION 36.3 % (70-80); VENOUS PCO2 51.2 mmHg (38-52); VENOUS PH 7.331 (7.310-7.410)
[2021-06-04 17:25] LABS: BASO % 0.7 % (0-2.0); EOS % 1.4 % (0-4.5); HEMATOCRIT 39.3 % (32.4-45.2); HEMOGLOBIN 13.3 GM/dL (10.7-15.3); LYMPH % 32.6 % (8-40); MCHC 33.9 g/dl (32.0-36.0); MEAN CELL VOLUME 76.8 fl (80-96); MEAN PLT VOLUME 8.3 fl (7.5-11.1); MONO % 5.6 % (3.8-10.2); NEUT % 59.7 % (42.8-82.8); PLATELET COUNT 353 10^3/uL (134-434); RBC 5.12 M/mm3 (3.60-5.2); RDW 13.3 % (11.6-15.6); WHITE BLOOD COUNT 8.8 K/mm3 (4.0-10.0)
[2021-06-04 17:35] LABS: CHLORIDE 94 mmol/L (98-107); SODIUM 130 mmol/L (136-145)
[2021-06-04 17:38] LABS: ANION GAP 11 MMOL/L (8-16); BLOOD UREA NITROGEN 17.1 mg/dL (7-18); CO2 25 mmol/L (21-32)
[2021-06-04 17:39] LABS: ALBUMIN 3.6 g/dl (3.4-5.0)
[2021-06-04 17:42] LABS: CREATININE 1.1 mg/dL (0.55-1.3); SGOT/AST 14 U/L (15-37); SGPT/ALT 22 U/L (13-61)
[2021-06-04 17:43] LABS: BILIRUBIN,TOTAL 0.3 mg/dL (0.2-1); TOT PROT 8.2 g/dl (6.4-8.2)
[2021-06-04 17:44] LABS: ALK PHOS 119 U/L (45-117)
[2021-06-04 17:46] LABS: GLUCOSE,RANDOM 485 mg/dL (74-106)
[2021-06-04] MEDS ORDERED: INSULIN (NOVOLOG) ASPART 100 UNITS/ML 10ML VIAL SQ ONE (18:58)
[2021-06-04 21:05] VITALS: BP 128/68; PULSE 78; TEMP 97.9
== END 2021-06-04 21:04 | disposition home or self-care (01) ==
LOC: JER 16:35
DX: R73.9 Hyperglycemia, unspecified (principal); Z91.14 Patient's other noncompliance with medication regimen
CPT/HCPCS: 36415; 80053; 82010; 82803; 82962; 85025; 99283-25

== ENCOUNTER 2021-10-24 12:19 | Emergency (ER) | payer OTHER ==
[2021-10-24 12:36] VITALS: BP 142/80; PULSE 119; TEMP 99.2; BMI 28.1
[2021-10-24] MEDS ORDERED: ONDANSETRON 4 MG/2 ML VIAL ONE (13:35)
[2021-10-24] MEDS ORDERED: ASPIRIN 81 MG CHEWABLE TABLETS PO ONE (13:45)
[2021-10-24] MEDS ORDERED: ONDANSETRON 4 MG/2 ML VIAL IVPUSH ONE (13:46)
[2021-10-24] MEDS ORDERED: SODIUM CHLORIDE 1,000 ML IV STA (13:49)
[2021-10-24 14:41] LABS: BASO % 0.2 % (0-2.0); EOS % 0.4 % (0-4.5); HEMATOCRIT 40.3 % (32.4-45.2); HEMOGLOBIN 13.5 GM/dL (10.7-15.3); LYMPH % 11.1 % (8-40); MCH 25.7 pg (25.7-33.7); MCHC 33.4 g/dl (32.0-36.0); MEAN CELL VOLUME 76.9 fl (80-96); MEAN PLT VOLUME 7.8 fl (7.5-11.1); MONO % 4.1 % (3.8-10.2); NEUT % 84.2 % (42.8-82.8); PLATELET COUNT 397 10^3/uL (134-434); RBC 5.24 M/mm3 (3.60-5.2); RDW 13.7 % (11.6-15.6); WHITE BLOOD COUNT 7.7 K/mm3 (4.0-10.0)
[2021-10-24 14:43] LABS: INR 1.13 (0.83-1.09)
[2021-10-24 14:46] LABS: ACTIVATED PTT 38.3 SECONDS (25.2-36.5)
[2021-10-24 15:12] LABS: ALBUMIN 3.7 g/dl (3.4-5.0); BLOOD UREA NITROGEN 10.8 mg/dL (7-18)
[2021-10-24 15:13] LABS: MAGNESIUM 2.3 mg/dL (1.8-2.4)
[2021-10-24 15:15] LABS: CREATININE 0.8 mg/dL (0.55-1.3)
[2021-10-24 15:16] LABS: BILIRUBIN,TOTAL 0.6 mg/dL (0.2-1); TOT PROT 8.1 g/dl (6.4-8.2)
[2021-10-24] MEDS ORDERED: ASPIRIN 81 MG CHEWABLE TABLETS ONE (15:27)
[2021-10-24 18:37] LABS: EPI CELLS >36 /uL (0-25.1); HYALINE CASTS 8 /uL (0-3.1); PH,URINE 5.5 (5.0-8.0); URINE APPEARANCE CLOUDY; URINE BACTERIA >9,000 /uL (0-1359); URINE BILIRUBIN NEGATIVE (NEGATIVE); URINE COLOR YELLOW; URINE GLUCOSE (UA) NEGATIVE (NEGATIVE); URINE KETONE TRACE (NEGATIVE); URINE LEUK ESTERASE TRACE (NEGATIVE); URINE NITRITE NEGATIVE (NEGATIVE); URINE PROTEIN NEGATIVE (NEGATIVE); URINE RBC 6 /uL (0-23.9); URINE WBC 58 /uL (0-25.8)
== END 2021-10-24 19:54 | disposition home or self-care (01) ==
LOC: JER 12:19
PROC: 3E033NZ Introduction of Analgesics, Hypnotics, Sedatives into Peripheral Vein, Percutaneous Approach (ICD-10-PCS; principal; 2021-10-24)
PROC: 3E0337Z Introduction of Electrolytic and Water Balance Substance into Peripheral Vein, Percutaneous Approach (ICD-10-PCS; 2021-10-24)
DX: N30.00 Acute cystitis without hematuria (principal); J06.9 Acute upper respiratory infection, unspecified
CPT/HCPCS: 36415; 71275-TC; 80053; 81003; 82010; 83735; 84484; 84703; 85025; 85379; 85610; 85730; 87804; 93005; 93010; 99285-25; C9803; Q9967; U0003; U0005

== ENCOUNTER 2022-12-17 06:57 | Inpatient (IN) | payer OTHER ==
[2022-12-17] MEDS ORDERED: ACETAMINOPHEN 1000 MG/100 ML BAG IVPB ONE ×2 (07:35→16:14)
[2022-12-17] MEDS ORDERED: SODIUM CHLORIDE 0.9% 1000 ML INFUS.BAG IV ONE (07:35)
[2022-12-17] MEDS ORDERED: ACETAMINOPHEN INJECTION 100 ML IVPB ONE ×2 (07:55→17:08)
[2022-12-17] MEDS ORDERED: ONDANSETRON 4 MG/2 ML VIAL ONE (07:56)
[2022-12-17 08:17] LABS: VENOUS BASE EXCESS 0.7 mmol/L (-2-2); VENOUS PCO2 44.3 mmHg (38-52); VENOUS PH 7.387 (7.310-7.410)
[2022-12-17 08:27] LABS: BASO % 0.2 % (0-2.0); EOS % 0.1 % (0-4.5); HEMATOCRIT 35.8 % (32.4-45.2); HEMOGLOBIN 12.1 GM/dL (10.7-15.3); LYMPH % 5.9 % (8-40); MCH 25.4 pg (25.7-33.7); MCHC 33.8 g/dl (32.0-36.0); MEAN CELL VOLUME 75.2 fl (80-96); MEAN PLT VOLUME 8.1 fl (7.5-11.1); MONO % 6.5 % (3.8-10.2); NEUT % 87.3 % (42.8-82.8); PLATELET COUNT 343 10^3/uL (134-434); RBC 4.77 M/mm3 (3.60-5.2); RDW 13.5 % (11.6-15.6); WHITE BLOOD COUNT 18.4 K/mm3 (4.0-10.0)
[2022-12-17 08:59] LABS: CALCIUM 9.2 mg/dL (8.5-10.1)
[2022-12-17 09:00] LABS: ALBUMIN 3.4 g/dl (3.4-5.0); BLOOD UREA NITROGEN 10.1 mg/dL (7-18)
[2022-12-17 09:03] LABS: CREATININE 0.8 mg/dL (0.55-1.3)
[2022-12-17 09:05] LABS: BILIRUBIN,TOTAL 0.6 mg/dL (0.2-1); TOT PROT 7.9 g/dl (6.4-8.2)
[2022-12-17] MEDS ORDERED: METOCLOPRAMIDE HCL INJECTION 10 MG/2 ML VIAL IVPUSH ONE (11:50)
[2022-12-17] MEDS ORDERED: SODIUM CHLORIDE 0.9% 500 ML INFUS.BAG IV ONE (11:51)
[2022-12-17] MEDS ORDERED: METOCLOPRAMIDE HCL INJECTION 10 MG/2 ML VIAL ONE (12:20)
[2022-12-17] MEDS ORDERED: AMOXICILLIN 500 MG CAPSULE (FP) PO ONE (15:37)
[2022-12-17] MEDS ORDERED: AMPICILLIN NA/SULBACTAM NA 1.5 GM in SODIUM CHLORIDE 100 ML IVPB ONE (15:39)
[2022-12-17 16:02] LABS: URINE APPEARANCE CLEAR; URINE BILIRUBIN NEGATIVE (NEGATIVE); URINE COLOR YELLOW; URINE GLUCOSE (UA) 1+ (NEGATIVE); URINE KETONE NEGATIVE (NEGATIVE); URINE LEUK ESTERASE NEGATIVE (NEGATIVE); URINE NITRITE NEGATIVE (NEGATIVE); URINE PROTEIN NEGATIVE (NEGATIVE); URINE UROBILINOGEN 0.2 mg/dL (0.2-1.0)
[2022-12-17] MEDS ORDERED: CEFTRIAXONE 2 MG in DEXTROSE 5%-WATER - 50 ML IVPB ONE (16:05)
[2022-12-17] MEDS ORDERED: AMOXICILLIN 500 MG CAPSULE (FP) ONE (17:08)
[2022-12-17] MEDS ORDERED: CEFTRIAXONE 2 GM/100 ML BAG IVPB ONE (17:09)
[2022-12-17] MEDS ORDERED: ONDANSETRON 4 MG/2 ML VIAL IVPUSH PRN (17:47)
[2022-12-17] MEDS ORDERED: LACTATED RINGERS SOLUTION 1,000 ML/1,000 ML INFUS.BAG IV SCH (19:00)
[2022-12-17] MEDS ORDERED: ONDANSETRON *ODT* 4 MG TABLET SL PRN (22:00)
[2022-12-17] MEDS ORDERED: HEPARIN NA (PORCINE) 5,000 UNITS/ML 1ML VIAL ONE (22:29)
[2022-12-17] MEDS: INSULIN (LEVEMIR) 100 UNITS/ML UNITS SQ SCH (22:38)
[2022-12-17] MEDS: HEPARIN NA (PORCINE) 5,000 UNITS/ML 1ML VIAL SQ SCH (22:38)
[2022-12-18] MEDS ORDERED: KETOROLAC TROMETHAMINE 15 MG/ML VIAL ONE ×2 (00:57→16:19)
[2022-12-18] MEDS ORDERED: ACETAMINOPHEN 1000 MG/100 ML BAG IVPB ONE (00:59)
[2022-12-18] MEDS: KETOROLAC TROMETHAMINE 15 MG/ML VIAL IVPUSH PRN ×2 (00:59→16:38)
[2022-12-18 01:42] VITALS: RESP 20
[2022-12-18 07:21] LABS: BASO % 0.3 % (0-2.0); EOS % 0.3 % (0-4.5); HEMATOCRIT 34.5 % (32.4-45.2); HEMOGLOBIN 11.4 GM/dL (10.7-15.3); LYMPH % 14.6 % (8-40); MCH 24.9 pg (25.7-33.7); MCHC 33.2 g/dl (32.0-36.0); MEAN PLT VOLUME 8.1 fl (7.5-11.1); NEUT % 77.8 % (42.8-82.8); PLATELET COUNT 302 10^3/uL (134-434); RDW 13.6 % (11.6-15.6); WHITE BLOOD COUNT 17.3 K/mm3 (4.0-10.0)
[2022-12-18 07:48] LABS: CALCIUM 8.8 mg/dL (8.5-10.1)
[2022-12-18 07:49] LABS: BLOOD UREA NITROGEN 8.8 mg/dL (7-18)
[2022-12-18 07:52] LABS: CREATININE 0.7 mg/dL (0.55-1.3)
[2022-12-18] MEDS ORDERED: AMPICILLIN NA/SULBACTAM NA 3 GM in SODIUM CHLORIDE 100 ML IVPB SCH (09:00)
[2022-12-18] MEDS ORDERED: CEFTRIAXONE 2 GM in DEXTROSE 5%-WATER 100 ML IVPB SCH (10:00)
[2022-12-18] MEDS: INSULIN SLIDING SCALE (NOVOLOG) 1 VIAL SQ SCH ×4 (11:13→16:45)
[2022-12-18] MEDS ORDERED: LISINOPRIL 20 MG TABLET ONE (12:00)
[2022-12-18] MEDS ORDERED: HEPARIN NA (PORCINE) 5,000 UNITS/ML 1ML VIAL ONE (12:00)
[2022-12-18] MEDS ORDERED: AMPICILLIN NA/SULBACTAM NA 1.5 GM VIAL ONE ×2 (12:01→16:19)
[2022-12-18] MEDS: HEPARIN NA (PORCINE) 5,000 UNITS/ML 1ML VIAL SQ SCH ×2 (12:09→23:35)
[2022-12-18] MEDS: INSULIN (NOVOLOG) ASPART 100 UNITS/ML 10ML VIAL SQ SCH ×3 (12:09→16:44)
[2022-12-18] MEDS: AMPICILLIN NA/SULBACTAM NA 3 GM in SODIUM CHLORIDE 100 ML IVPB SCH ×3 (12:10→23:43)
[2022-12-18] MEDS: LISINOPRIL 20 MG TABLET PO SCH (12:10)
[2022-12-18] MEDS ORDERED: ACETAMINOPHEN 325 MG TABLET (FP) PO PRN (15:19)
[2022-12-18] MEDS ORDERED: INSULIN (NOVOLOG) ASPART 100 UNITS/ML 10ML VIAL ONE (23:25)
[2022-12-18] MEDS: INSULIN (LEVEMIR) 100 UNITS/ML UNITS SQ SCH (23:36)
[2022-12-18] MEDS: MELATONIN 5 MG TABLETS PO PRN (23:36)
[2022-12-19 01:27] VITALS: BMI 28.6
[2022-12-19] MEDS: AMPICILLIN NA/SULBACTAM NA 3 GM in SODIUM CHLORIDE 100 ML IVPB SCH ×5 (04:00→22:44)
[2022-12-19] MEDS: INSULIN (NOVOLOG) ASPART 100 UNITS/ML 10ML VIAL SQ SCH ×3 (06:18→16:22)
[2022-12-19] MEDS: INSULIN SLIDING SCALE (NOVOLOG) 1 VIAL SQ SCH ×3 (06:18→16:22)
[2022-12-19] MEDS: LISINOPRIL 20 MG TABLET PO SCH (09:29)
[2022-12-19] MEDS: HEPARIN NA (PORCINE) 5,000 UNITS/ML 1ML VIAL SQ SCH ×2 (09:29→22:45)
[2022-12-19 09:54] LABS: BASO % 0.4 % (0-2.0); EOS % 1.1 % (0-4.5); HEMATOCRIT 32.1 % (32.4-45.2); HEMOGLOBIN 10.8 GM/dL (10.7-15.3); LYMPH % 16.2 % (8-40); MCHC 33.6 g/dl (32.0-36.0); MEAN CELL VOLUME 74.5 fl (80-96); MEAN PLT VOLUME 7.9 fl (7.5-11.1); MONO % 5.2 % (3.8-10.2); NEUT % 77.1 % (42.8-82.8); PLATELET COUNT 336 10^3/uL (134-434); RBC 4.31 M/mm3 (3.60-5.2); RDW 13.7 % (11.6-15.6)
[2022-12-19] MEDS ORDERED: INSULIN (NOVOLOG) ASPART 100 UNITS/ML 10ML VIAL ONE ×5 (11:23→22:29)
[2022-12-19 11:33] LABS: CALCIUM 8.5 mg/dL (8.5-10.1)
[2022-12-19 11:34] LABS: ALBUMIN 2.8 g/dl (3.4-5.0); BLOOD UREA NITROGEN 9.5 mg/dL (7-18); MAGNESIUM 2.4 mg/dL (1.8-2.4)
[2022-12-19 11:37] LABS: CREATININE 0.6 mg/dL (0.55-1.3); PHOSPHOROUS 3.2 mg/dL (2.5-4.9)
[2022-12-19 11:38] LABS: BILIRUBIN,TOTAL 0.7 mg/dL (0.2-1); TOT PROT 7.3 g/dl (6.4-8.2)
[2022-12-19] MEDS: MELATONIN 5 MG TABLETS PO PRN (22:45)
[2022-12-19] MEDS: INSULIN (LEVEMIR) 100 UNITS/ML UNITS SQ SCH (23:00)
[2022-12-20] MEDS: AMPICILLIN NA/SULBACTAM NA 3 GM in SODIUM CHLORIDE 100 ML IVPB SCH ×2 (02:46→09:19)
[2022-12-20] MEDS: INSULIN (NOVOLOG) ASPART 100 UNITS/ML 10ML VIAL SQ SCH ×2 (06:22→12:04)
[2022-12-20] MEDS: INSULIN SLIDING SCALE (NOVOLOG) 1 VIAL SQ SCH ×2 (06:22→12:05)
[2022-12-20 08:00] LABS: BASO % 0.5 % (0-2.0); EOS % 2.6 % (0-4.5); HEMATOCRIT 32.3 % (32.4-45.2); HEMOGLOBIN 10.8 GM/dL (10.7-15.3); LYMPH % 25.5 % (8-40); MCH 25.2 pg (25.7-33.7); MCHC 33.3 g/dl (32.0-36.0); MEAN CELL VOLUME 75.5 fl (80-96); MEAN PLT VOLUME 7.5 fl (7.5-11.1); MONO % 6.7 % (3.8-10.2); NEUT % 64.7 % (42.8-82.8); PLATELET COUNT 364 10^3/uL (134-434); RBC 4.28 M/mm3 (3.60-5.2); RDW 13.8 % (11.6-15.6); WHITE BLOOD COUNT 10.1 K/mm3 (4.0-10.0)
[2022-12-20 08:23] LABS: CALCIUM 8.9 mg/dL (8.5-10.1)
[2022-12-20 08:24] LABS: ALBUMIN 2.8 g/dl (3.4-5.0); BLOOD UREA NITROGEN 9.1 mg/dL (7-18); MAGNESIUM 2.5 mg/dL (1.8-2.4)
[2022-12-20 08:27] LABS: CREATININE 0.5 mg/dL (0.55-1.3); PHOSPHOROUS 3.9 mg/dL (2.5-4.9)
[2022-12-20 08:28] LABS: BILIRUBIN,TOTAL 0.3 mg/dL (0.2-1); TOT PROT 7.2 g/dl (6.4-8.2)
[2022-12-20] MEDS: LISINOPRIL 20 MG TABLET PO SCH (09:19)
[2022-12-20] MEDS: HEPARIN NA (PORCINE) 5,000 UNITS/ML 1ML VIAL SQ SCH (09:29)
[2022-12-20] MEDS ORDERED: DOCUSATE SODIUM 100 MG CAPSULE (FP) PO ONE (12:22)
[2022-12-20] MEDS ORDERED: SODIUM CHLORIDE NASAL SPRAY 44 ML BOTTLE NS PRN (12:22)
[2022-12-20] MEDS ORDERED: POLYETHYLENE GLYCOL (HEALTHYLAX) 3350 17 GM PACKET PO SCH (12:30)
[2022-12-20 13:07] VITALS: BP 131/75; PULSE 100; TEMP 98.5
== END 2022-12-20 13:14 | disposition home or self-care (01) | DRG 872 ==
LOC: JER 06:57 → JERBED 15:40 → OBSVTOIN 17:35 → J8W 12-18 21:46
PROVIDERS: ADMIT Internal Medicine; ATTEND Nurse Practitioner Acute Care
DX: A41.9 Sepsis, unspecified organism (principal); J39.0 Retropharyngeal and parapharyngeal abscess; I10 Essential (primary) hypertension; E11.9 Type 2 diabetes mellitus without complications; E78.5 Hyperlipidemia, unspecified; Z79.4 Long term (current) use of insulin
CPT/HCPCS: 0241U-QW; 36415; 70450-TC; 70491-TC; 71045-TC-FY; 76705-TC; 80048; 80053; 81003; 82550; 82553; 82803; 82962; 83605; 83735; 84100; 84484; 84703; 85025; 86140; 87040; 87070; 87077; 87086; 87651; 93005; 93010; 93308; 99285-25; G0378; J1644; Q9967

== ENCOUNTER 2023-01-18 19:28 | Emergency (ER) | payer OTHER ==
[2023-01-18 19:35] VITALS: BP 143/85; PULSE 92; RESP 18; TEMP 98; BMI 28.3
== END 2023-01-18 22:39 | disposition home or self-care (01) ==
LOC: JER 19:28
DX: M54.50 Low back pain, unspecified (principal); R60.0 Localized edema; R39.15 Urgency of urination
CPT/HCPCS: 72100-TC-FY; 99283-25

== ENCOUNTER 2023-02-28 19:26 | Emergency (ER) | payer OTHER ==
[2023-02-28 19:31] VITALS: RESP 18; BMI 28.1
[2023-02-28] MEDS ORDERED: SODIUM CHLORIDE 0.9% 500 ML INFUS.BAG IV ONE (19:59)
[2023-02-28] MEDS ORDERED: ACETAMINOPHEN 1000 MG/100 ML BAG IVPB ONE (19:59)
[2023-02-28 20:40] LABS: VENOUS BASE EXCESS 0.8 mmol/L (-2-2); VENOUS O2 SATURATION 66.2 % (70-80); VENOUS PCO2 37.6 mmHg (38-52); VENOUS PH 7.436 (7.310-7.410)
[2023-02-28 20:42] LABS: BASO % 0.3 % (0-2.0); EOS % 0.2 % (0-4.5); HEMATOCRIT 36.2 % (32.4-45.2); HEMOGLOBIN 11.7 GM/dL (10.7-15.3); LYMPH % 13.2 % (8-40); MCH 24.4 pg (25.7-33.7); MCHC 32.4 g/dl (32.0-36.0); MEAN CELL VOLUME 75.3 fl (80-96); NEUT % 80.3 % (42.8-82.8); PLATELET COUNT 352 10^3/uL (134-434); RBC 4.81 M/mm3 (3.60-5.2); RDW 13.9 % (11.6-15.6); WHITE BLOOD COUNT 16.5 K/mm3 (4.0-10.0)
[2023-02-28] MEDS ORDERED: ONDANSETRON 4 MG/2 ML VIAL ONE (20:42)
[2023-02-28] MEDS ORDERED: ACETAMINOPHEN INJECTION 100 ML IVPB ONE (20:42)
[2023-02-28] MEDS ORDERED: ONDANSETRON 4 MG/2 ML VIAL IVPUSH ONE (20:42)
[2023-02-28 20:57] LABS: INR 1.21 (0.83-1.09)
[2023-02-28 21:00] LABS: ACTIVATED PTT 37.7 SECONDS (25.2-36.5)
[2023-02-28 21:05] LABS: POTASSIUM 4.3 mmol/L (3.5-5.1)
[2023-02-28 21:07] LABS: CALCIUM 9.1 mg/dL (8.5-10.1)
[2023-02-28 21:08] LABS: ALBUMIN 3.4 g/dl (3.4-5.0); BLOOD UREA NITROGEN 9.3 mg/dL (7-18)
[2023-02-28 21:11] LABS: CREATININE 0.8 mg/dL (0.55-1.3)
[2023-02-28 21:12] LABS: BILIRUBIN,TOTAL 0.4 mg/dL (0.2-1)
[2023-02-28] MEDS ORDERED: CLINDAMYCIN 600MG PREMIX IVPB 600 MG/50 ML BAG IVPB ONE (21:14)
[2023-02-28 21:34] LABS: EPI CELLS >36 /uL (0-25.1); HYALINE CASTS 1 /uL (0-3.1); URINE APPEARANCE CLEAR; URINE BACTERIA 697 /uL (0-1359); URINE BILIRUBIN NEGATIVE (NEGATIVE); URINE COLOR YELLOW; URINE GLUCOSE (UA) NEGATIVE (NEGATIVE); URINE KETONE NEGATIVE (NEGATIVE); URINE LEUK ESTERASE 2+ (NEGATIVE); URINE NITRITE NEGATIVE (NEGATIVE); URINE PROTEIN TRACE (NEGATIVE); URINE RBC 10 /uL (0-23.9); URINE WBC 269 /uL (0-25.8)
[2023-02-28] MEDS ORDERED: CLINDAMYCIN 900 MG PREMIX IVPB 900 MG/50 ML BAG IVPB ONE (22:03)
[2023-02-28 22:22] VITALS: BP 108/68; PULSE 99; TEMP 98.8
[2023-03-01] MEDS ORDERED: PENICILLIN G BENZATHINE 1,200,000 UNIT/2 ML PFS IM ONE ×2 (00:11→00:23)
== END 2023-03-01 00:52 | disposition home or self-care (01) ==
LOC: JER 19:26
PROC: 3E03329 Introduction of Other Anti-infective into Peripheral Vein, Percutaneous Approach (ICD-10-PCS; principal; 2023-02-28)
PROC: 3E03329 Introduction of Other Anti-infective into Peripheral Vein, Percutaneous Approach (ICD-10-PCS; 2023-02-28)
PROC: 3E033NZ Introduction of Analgesics, Hypnotics, Sedatives into Peripheral Vein, Percutaneous Approach (ICD-10-PCS; 2023-02-28)
PROC: 3E033GC Introduction of Other Therapeutic Substance into Peripheral Vein, Percutaneous Approach (ICD-10-PCS; 2023-02-28)
PROC: 3E03329 Introduction of Other Anti-infective into Peripheral Vein, Percutaneous Approach (ICD-10-PCS; 2023-03-01)
DX: J02.0 Streptococcal pharyngitis (principal); R51.9 Headache, unspecified; M79.10 Myalgia, unspecified site; R11.2 Nausea with vomiting, unspecified; R06.00 Dyspnea, unspecified; Z20.822 Contact with and (suspected) exposure to COVID-19
CPT/HCPCS: 0241U-QW; 36415; 70491-TC; 71046-TC-FY; 80053; 81003; 82803; 83605; 84484; 85025; 85610; 85730; 87040; 87070; 87086; 87651; 93005; 93010; 99285-25; Q9967

== ENCOUNTER 2024-04-12 11:56 | Emergency (ER) | payer OTHER ==
[2024-04-12 12:10] VITALS: BP 118/80; PULSE 95; RESP 16; TEMP 97; BMI 28.1
[2024-04-12 12:59] LABS: BASO % 0.5 % (0-2.0); EOS % 1.8 % (0-4.5); HEMATOCRIT 35.8 % (32.4-45.2); HEMOGLOBIN 11.9 GM/dL (10.7-15.3); LYMPH % 38.4 % (8-40); MCH 25.3 pg (25.7-33.7); MCHC 33.4 g/dl (32.0-36.0); MEAN CELL VOLUME 75.9 fl (80-96); MEAN PLT VOLUME 8.1 fl (7.5-11.1); MONO % 6.7 % (3.8-10.2); NEUT % 52.6 % (42.8-82.8); PLATELET COUNT 333 10^3/uL (134-434); RBC 4.71 M/mm3 (3.60-5.2); WHITE BLOOD COUNT 7.4 K/mm3 (4.0-10.0)
[2024-04-12 13:05] LABS: INR 1.01 (0.83-1.09); PROTHROMBIN TIME (PATIENT) 11.6 SEC (9.7-13.0)
[2024-04-12 13:08] LABS: ACTIVATED PTT 36.8 SECONDS (25.2-36.5)
[2024-04-12] MEDS ORDERED: MAG HYDROX/AL HYDROX/SIMETH 30 ML UNIT-DOSE CUP ONE (13:21)
[2024-04-12 13:22] LABS: POTASSIUM 4.5 mmol/L (3.5-5.1)
[2024-04-12 13:24] LABS: ALBUMIN 3.4 g/dl (3.4-5.0); BLOOD UREA NITROGEN 12.5 mg/dL (7-18); CALCIUM 9.4 mg/dL (8.5-10.1)
[2024-04-12] MEDS: MAG HYDROX/AL HYDROX/SIMETH -MYLANTA- ORAL SUSPENSION PO ONE (13:24)
[2024-04-12 13:28] LABS: CREATININE 0.9 mg/dL (0.55-1.3)
[2024-04-12 13:29] LABS: BILIRUBIN,TOTAL 0.4 mg/dL (0.2-1); TOT PROT 7.6 g/dl (6.4-8.2)
== END 2024-04-12 14:10 | disposition home or self-care (01) ==
LOC: JER 11:56
DX: R07.89 Other chest pain (principal); R06.02 Shortness of breath
CPT/HCPCS: 36415; 71045-TC-FY; 80053; 83690; 84484; 85025; 85610; 85730; 93005; 93010; 99285-25